=== PATIENT | female | born 1935 | race Asian ===

== ENCOUNTER 2016-05-07 07:29 | Emergency (ER) | payer MEDICARE, OTHER ==
[~2016-05-07] VITALS: Ht 154.9 cm; Wt 56.8 kg
[2016-05-07] MEDS ORDERED: NITROGLYCERIN 2% OINTMENT (NITRO-BID) 1 GM UNIT DOSE PACKET TOP ONE (07:40)
[2016-05-07] MEDS ORDERED: FUROSEMIDE 20 MG/2 ML (LASIX) VIAL IV ONE (07:40)
[2016-05-07] MEDS ORDERED: DILTIAZEM 25 MG/5 ML (CARDIZEM) VIAL IV ONE (07:40)
[2016-05-07] MEDS ORDERED: ALBUTEROL 0.083% NEB SOLUTION 2.5 MG/3 ML VIAL INH ONE (08:05)
[2016-05-07 08:11] LABS: BASOPHILS % (AUTO) 0 % (0-2); EOSINOPHILS # (AUTO) 0.2 10^3uL; EOSINOPHILS % (AUTO) 1 % (0-4); LYMPHOCYTES # (AUTO) 1.5 X10^3; MEAN CORPUSCULAR HEMOGLOBIN 30.5 PG (26.0-34.0); MEAN CORPUSCULAR HGB CONC 31.8 g/dL (31.0-37.0); MEAN CORPUSCULAR VOLUME 96 FL (80-100); MEAN PLATELET VOLUME 9.6 FL (6.0-9.5); MONOCYTES # (AUTO) 0.8 X10^3; MONOCYTES % (AUTO) 6 % (3-11); NEUTROPHILS # (AUTO) 10.2 X10^3; NEUTROPHILS % (AUTO) 80 % (51-67); PLATELET COUNT 208 10^3uL (150-450); WHITE BLOOD COUNT 12.72 10^3uL (4.0-11.0)
[2016-05-07 08:58] LABS: ALBUMIN 4.4 g/dL (3.4-5.0); ANION GAP 15.1 MEQ/L (3-15); CALCULATED IONIZED CALCIUM 3.7 mg/dL (3.8-4.6); TOTAL PROTEIN 8.7 g/dL (6.4-8.5)
[2016-05-07 09:01] LABS: BILIRUBIN,URINE Negative (Negative); COLOR,URINE Yellow; GLUCOSE, URINE (UA) Negative (Negative); LEUKOCYTE ESTERASE ,URINE Negative (Negative); PH,URINE 5.5 (5.0 - 8.0); UROBILINOGEN,URINE 0.2 mg/dL (0.2-1.0)
[2016-05-07 09:05] LABS: CLARITY,URINE Slightly Cloudy
[2016-05-07 09:13] LABS: INFLUENZA VIRUS TYPE A ANTIBOD Negative (NEGATIVE); INFLUENZA VIRUS TYPE B ANTIBOD Negative (NEGATIVE)
[2016-05-07 09:24] LABS: URINE CENTRIFUGED VOLUME 10 mL
[2016-05-07 09:25] LABS: YEAST,URINE Rare
[2016-05-07] MEDS ORDERED: ALBUTEROL/IPRATROPIUM 3MG-0.5MG/3ML (DUONEB) NEB VIAL INH ONE (09:25)
[2016-05-07] MEDS ORDERED: CARVEDILOL 12.5 MG (COREG) TABLET PO ONE (09:25)
[2016-05-07] MEDS ORDERED: HYDRALAZINE 50 MG PO ONE (09:25)
[2016-05-07 10:30] VITALS: BP 138/196
--- NOTE | 2016-05-12 08:38 | NUR ---
UA HAD COME BACK POSITIVE, DR JETER RX BACTRIM, CALLED IN ORDER TO [facility] AND CALLED GINA MESSAGE LEFT WITH INFO.
== END 2016-05-07 10:31 | disposition home or self-care (01) ==
LOC: EDUNIT# 07:29 → ED 07:30
DX: J45.901 Unspecified asthma with (acute) exacerbation (principal); I50.9 Heart failure, unspecified; J06.9 Acute upper respiratory infection, unspecified; R82.71 Bacteriuria; R31.29 Other microscopic hematuria
CPT/HCPCS: 36415; 71010; 80053; 81003; 81015; 82550; 82553; 82803; 83735; 83880; 84443; 84484; 85025; 85610; 86140; 87088; 87502; 93005; 94640; 96374; 96375; 99285; A9270; J1940; J7613; 87077; 87186; 93010

== ENCOUNTER → 2016-05-07 | Outpatient (CLI) | payer MEDICARE, OTHER | LOC: EMS 07:10 | PROVIDERS: ATTEND Family Medicine | DX: R06.02 Shortness of breath (principal); I10 Essential (primary) hypertension ==

== ENCOUNTER 2016-05-21 15:21 | Inpatient (IN) | payer MEDICARE, OTHER ==
[~2016-05-21] VITALS: Ht 157.5 cm; Wt 70.1 kg
[2016-05-21] MEDS ORDERED: NS IV 500 ML 500 ML IV SCH ×2 (15:40→16:30)
[2016-05-21 15:58] LABS: BASOPHILS % (AUTO) 0 % (0-2); EOSINOPHILS # (AUTO) 0.1 10^3uL; EOSINOPHILS % (AUTO) 1 % (0-4); LYMPHOCYTES # (AUTO) 1.2 X10^3; MEAN CORPUSCULAR HEMOGLOBIN 29.1 PG (26.0-34.0); MEAN CORPUSCULAR VOLUME 95 FL (80-100); MEAN PLATELET VOLUME 9.7 FL (6.0-9.5); MONOCYTES # (AUTO) 0.5 X10^3; MONOCYTES % (AUTO) 8 % (3-11); NEUTROPHILS # (AUTO) 4.2 X10^3; NEUTROPHILS % (AUTO) 70 % (51-67); PLATELET COUNT 191 10^3uL (150-450); WHITE BLOOD COUNT 5.96 10^3uL (4.0-11.0)
[2016-05-21 16:05] LABS: MEAN CORPUSCULAR HGB CONC 30.8 g/dL (31.0-37.0)
[2016-05-21 16:09] LABS: ALBUMIN 4.1 g/dL (3.4-5.0); ANION GAP 20.4 MEQ/L (3-15); CALCULATED IONIZED CALCIUM 3.6 mg/dL (3.8-4.6); TOTAL PROTEIN 7.6 g/dL (6.4-8.5)
[2016-05-21] MEDS ORDERED: ONDANSETRON 2 MG/ML (Z0FRAN) 2 ML VIAL IV ONE (16:10)
[2016-05-21] MEDS ORDERED: DEXTROSE 50% 25 GM/50 ML SYRINGE IV ONE (16:30)
[2016-05-21] MEDS ORDERED: INSULIN REGULAR 1 UNIT/0.01 ML DOSE IV ONE (16:30)
[2016-05-21] MEDS ORDERED: fentaNYL 100 MCG/2 ML VIAL IV ONE (16:35)
[2016-05-21 17:24] LABS: BILIRUBIN,URINE Negative (Negative); CLARITY,URINE Clear; COLOR,URINE Yellow; GLUCOSE, URINE (UA) Negative (Negative); LEUKOCYTE ESTERASE ,URINE Negative (Negative); PH,URINE 5.5 (5.0 - 8.0); UROBILINOGEN,URINE 0.2 mg/dL (0.2-1.0)
[2016-05-21 17:28] LABS: URINE CENTRIFUGED VOLUME <10mL Unspun
[2016-05-21 17:29] LABS: RBC,URINE None Seen /HPF
[2016-05-21] MEDS ORDERED: ALBUTEROL 0.083% NEB SOLUTION 2.5 MG/3 ML VIAL INH ONE ×2 (17:30→23:45)
--- NOTE | 2016-05-21 17:52 | NUR ---
Patient arrives to room 306 via ED cart accompanied by daughter and RN. Ambulates to weight chair then bed without difficulty. Reports nausea and right shoulder pain rated 4/10 on pain scale. Vital signs WNL. Accucheck 107. Granados catheter intact with minimal clear yellow urine in bag. Daughter answers health history questions due to language barrier. See admission for full assessment.
[2016-05-21 18:12] VITALS: BP 109/76
[2016-05-21] MEDS ORDERED: GLUCAGON EMERGENCY 1 MG/KIT IM PRN (18:35)
[2016-05-21] MEDS ORDERED: ONDANSETRON 4 MG (ZOFRAN) ORAL DISSOLVE TAB PO PRN (18:35)
[2016-05-21] MEDS ORDERED: MAG HYDROX/AL HYDROX/SIMETH 200-200-20/5 ML (MAG-AL PLUS) 30 ML UDC PO PRN (18:35)
[2016-05-21] MEDS ORDERED: ONDANSETRON 2 MG/ML (Z0FRAN) 2 ML VIAL IV PRN (18:35)
[2016-05-21] MEDS ORDERED: POLYETHYLENE GLYCOL 17 GM (MIRALAX) PACKET PO PRN (18:35)
[2016-05-21] MEDS ORDERED: DOCUSATE SODIUM 100 MG (COLACE) CAP PO PRN (18:35)
[2016-05-21] MEDS ORDERED: DEXTROSE 50% 25 GM/50 ML SYRINGE IV PRN (18:35)
[2016-05-21] MEDS ORDERED: DEXTROSE ORAL GEL (GLUTOSE 40%) 15 GM TUBE PO PRN (18:35)
[2016-05-21] MEDS ORDERED: HYDROmorphone 1 MG/ML (DILAUDID) SYRINGE IV PRN (18:35)
[2016-05-21] MEDS ORDERED: PROMETHAZINE HCL INJ 12.5 MG in SODIUM CHLORIDE 25 ML IV PRN (18:35)
[2016-05-21] MEDS ORDERED: MAGNESIUM HYDROXIDE 80MG/ML (MILK OF MAGNESIA) 30 ML UDC PO PRN (18:35)
[2016-05-21] MEDS ORDERED: CALCIUM CARBONATE CHEWABLE 300 MG (TUMS) TABLET PO PRN (18:35)
[2016-05-21] MEDS ORDERED: ACETAMINOPHEN 325 MG TAB (TYLENOL) PO PRN (18:35)
[2016-05-21] MEDS ORDERED: ALBUTEROL 0.5% NEB SOLUTION 2.5 MG/0.5 ML VIAL INH PRN (18:50)
[2016-05-21 19:19] LABS: ALBUMIN 3.9 g/dL (3.4-5.0); ANION GAP 19.1 MEQ/L (3-15); PHOSPHORUS 5.6 mg/dL (2.4-4.9)
--- NOTE | 2016-05-21 19:35 | NUR ---
Tylenol 650 mg PO given for pain in right shoulder. Pt. sitting upright in bed; resp are even and unlabored on room air; IV bolus infusing without difficulty. Pt. just finished eating supper tray; denies nausea. Pt. is conversational and pleasant. Call light and H2O within reach.
[2016-05-21 19:41] LABS: MAGNESIUM* 4.2 mg/dL (1.6-2.3)
--- NOTE | 2016-05-21 19:50 | NUR ---
Critical lab values sent via TigerText to hospitalist. Potassium- 6.3; Creatinine-4.42; Magnesium-4.2 Status update also provided: First bag of NS bolus infusing; pt. ate supper tray well; no nausea; alert and orientated. Right shoulder pain treated with Tylenol.
[2016-05-21 19:51] VITALS: BP 98/54
--- NOTE | 2016-05-21 19:55 | NUR ---
Current orders reviewed with hospitalist; labs reviewed. New order: text pending results of the 2300 lab draw if potassium over 6.0.
--- NOTE | 2016-05-21 19:55 | NUR ---
Bolus fully infused; saline locked. Pt. repositioned for comfort. Daughter at bedside; cot ordered for overnight stay. Daughter watching tv; pt. dozing off and on. Call light and H2O within reach.
--- NOTE | 2016-05-21 20:27 | NUR ---
Pt found on RA, SPO2 96%, HR 81, RR 18. Pt has clear BS, no PRN indicated at this time. Pt's only complaint is shoulder pain at this time.
[2016-05-21] MEDS ORDERED: APIXABAN 2.5 MG (ELIQUIS) TABLET PO SCH (21:00)
[2016-05-21] MEDS ORDERED: FAMOTIDINE 20 MG (PEPCID) TABLET PO SCH (21:00)
[2016-05-21] MEDS ORDERED: INSULIN LISPRO 1 UNIT/0.01 ML (HUMALOG) DOSE SC SCH (21:00)
--- NOTE | 2016-05-21 21:00 | NUR ---
Accucheck this evening is 166; sliding scale insulin not required.
[2016-05-21] MEDS ORDERED: SODIUM CHLORIDE FLUSH 10 ML ONE (21:20)
[2016-05-21] MEDS ORDERED: SODIUM CHLORIDE FLUSH 10 ML SYR IV PRN (21:25)
--- NOTE | 2016-05-21 23:16 | NUR ---
Dilaudid 1 mg IV given for right shoulder pain rated "5". Lab just here to draw. H2O and call light within reach.
--- NOTE | 2016-05-21 23:40 | NUR ---
Susan to Dr. Avilez/Hospitalist result of lab: Potassium 6.5. New orders include NS @ 75 cc/hr; Albuterol treatment now. Physician ok for this nurse to initiate IVF order into computer. RT notified of new order. Pt. currently resting quietly; telemetry reflects AFib in the 70's.
[2016-05-22] VITALS (17 sets, daily range): BP systolic 89–128; BP diastolic 45–70
--- NOTE | 2016-05-22 00:15 | NUR ---
Pt given 2.5 mg Albuterol via SVN for hyperkalemia per Hospitalist.
--- NOTE | 2016-05-22 01:30 | NUR ---
Pt. resting after this nurse assists with repositioning; heart rate in the 70's-AFib. Granados to gravity; IVF infusing at 75 cc's and hour without difficulty; daughter asleep at bedside on cot.
--- NOTE | 2016-05-22 04:35 | NUR ---
Pt. changed of incontinent stool; denies need for pain med at this time; IVF infusing without difficulty; perdue to gravity; call light and H2O within reach.
[2016-05-22 06:03] LABS: BASOPHILS % (AUTO) 0 % (0-2); EOSINOPHILS # (AUTO) 0.1 10^3uL; EOSINOPHILS % (AUTO) 1 % (0-4); LYMPHOCYTES # (AUTO) 1.3 X10^3; MEAN CORPUSCULAR HEMOGLOBIN 29.5 PG (26.0-34.0); MEAN CORPUSCULAR VOLUME 95 FL (80-100); MEAN PLATELET VOLUME 9.8 FL (6.0-9.5); MONOCYTES # (AUTO) 0.5 X10^3; MONOCYTES % (AUTO) 8 % (3-11); NEUTROPHILS # (AUTO) 4.3 X10^3; NEUTROPHILS % (AUTO) 70 % (51-67); PLATELET COUNT 189 10^3uL (150-450); WHITE BLOOD COUNT 6.15 10^3uL (4.0-11.0)
--- NOTE | 2016-05-22 06:05 | NUR ---
Accucheck is 121 this morning; sliding scale insulin not required. Pt. slept in long intervals; denies need for pain med at this time. Pt. had scant to zero output within the last 8 hrs; bladder scan completed- 103 cc's. Pt. states she does not feel like she has to void; tubing inspected. Call light and H2O within reach. Daughter left about an hour ago.
[2016-05-22 06:27] LABS: MEAN CORPUSCULAR HGB CONC 31.2 g/dL (31.0-37.0)
[2016-05-22 06:47] LABS: ALBUMIN 3.7 g/dL (3.4-5.0); PHOSPHORUS 5.6 mg/dL (2.4-4.9)
[2016-05-22] MEDS ORDERED: ALBUTEROL/IPRATROPIUM 3MG-0.5MG/3ML (DUONEB) NEB VIAL INH SCH ×2 (07:00→11:00)
[2016-05-22] MEDS ORDERED: D5W IV ONE (07:05)
[2016-05-22] MEDS ORDERED: SODIUM BICARB IV ONE (07:05)
[2016-05-22] MEDS ORDERED: CALCIUM GLUCONATE 1,000 MG in D5W (IVPB) 50 ML IV ONE (07:05)
--- NOTE | 2016-05-22 07:15 | NUR ---
Labs/output texted to .
[2016-05-22] MEDS ORDERED: DEXTROSE ORAL GEL (GLUTOSE 40%) 15 GM TUBE PO PRN (07:20)
[2016-05-22] MEDS: INSULIN LISPRO 1 UNIT/0.01 ML (HUMALOG) DOSE SC SCH ×4 (07:30→21:00)
--- NOTE | 2016-05-22 07:30 | NUR ---
Transferred to room 345 per bed - transferred self to ICU bed - weight 66.3 kg
--- NOTE | 2016-05-22 07:30 | NUR ---
Assumed care at 0700. Harshal called with request to transfer to ICU at 0720. Report given to Pat Salmon RN. Pt AAO, informed of transfer; pt remains calm. IVF infusing with no difficulty. Pt transferred to Rm 345 at this time.
[2016-05-22] MEDS ORDERED: ONDANSETRON 2 MG/ML (Z0FRAN) 2 ML VIAL IV PRN (07:46)
[2016-05-22] MEDS ORDERED: SODIUM CHLORIDE FLUSH 10 ML SYR IV PRN (07:47)
[2016-05-22] MEDS ORDERED: ONDANSETRON 4 MG (ZOFRAN) ORAL DISSOLVE TAB PO PRN (07:47)
[2016-05-22] MEDS ORDERED: ACETAMINOPHEN 325 MG TAB (TYLENOL) PO PRN (07:48)
[2016-05-22] MEDS ORDERED: ALBUTEROL 0.5% NEB SOLUTION 2.5 MG/0.5 ML VIAL INH PRN (07:48)
[2016-05-22] MEDS ORDERED: CALCIUM CARBONATE CHEWABLE 300 MG (TUMS) TABLET PO PRN (07:48)
[2016-05-22] MEDS ORDERED: PROMETHAZINE HCL INJ 12.5 MG in SODIUM CHLORIDE 25 ML IV PRN (07:49)
[2016-05-22] MEDS ORDERED: DEXTROSE 50% 25 GM/50 ML SYRINGE IV PRN (07:49)
[2016-05-22] MEDS ORDERED: GLUCAGON EMERGENCY 1 MG/KIT IM PRN (07:49)
[2016-05-22] MEDS ORDERED: SODIUM BICARBONATE 8.4% 50 MEQ/50 ML SYRINGE IV ONE (07:55)
[2016-05-22] MEDS ORDERED: HYDROmorphone 1 MG/ML (DILAUDID) SYRINGE IV PRN (07:57)
[2016-05-22] MEDS ORDERED: CARVEDILOL 12.5 MG (COREG) TABLET PO SCH (08:00)
--- NOTE | 2016-05-22 08:00 | NUR ---
RT TX in progress
--- NOTE | 2016-05-22 08:15 | NUR ---
Dr Caputo in room - EKG in progress
--- NOTE | 2016-05-22 08:16 | NUR ---
Granddaughter called in for condition report
[2016-05-22] MEDS: CARVEDILOL 12.5 MG (COREG) TABLET PO SCH ×2 (08:26→17:33)
--- NOTE | 2016-05-22 08:30 | NUR ---
NS to infuse @ 999 mL/hr per RAC - Na bicarbonate to infuse per [facility] @ 100 mL/hr
--- NOTE | 2016-05-22 08:30 | NUR ---
Ate poor for breakfast: 2 bites banana and few dry cheerios - sipping on coffee "I like HOT drinks" - c/o cold - room T increased and extra blankets applied
--- NOTE | 2016-05-22 08:40 | NUR ---
Na bicarbonate slow IV push as ordered per RAC
[2016-05-22] MEDS: SODIUM POLYSTERENE SULF SUSP 15 GM/60 ML (KAYEXALATE) BTL PO SCH ×2 (08:57→13:00)
[2016-05-22] MEDS: HYDRALAZINE 50 MG PO SCH ×3 (08:58→17:33)
[2016-05-22] MEDS ORDERED: APIXABAN 2.5 MG (ELIQUIS) TABLET PO SCH (09:00)
[2016-05-22] MEDS ORDERED: hydrALAZINE 25 MG (APRESOLINE) TABLET PO SCH (09:00)
[2016-05-22] MEDS ORDERED: POLYETHYLENE GLYCOL 17 GM (MIRALAX) PACKET PO PRN (09:00)
[2016-05-22] MEDS ORDERED: DOCUSATE SODIUM 100 MG (COLACE) CAP PO PRN (09:00)
[2016-05-22] MEDS ORDERED: ASPIRIN 81 MG CHEW (CHILDREN'S ASA) PO SCH ×2 (09:00)
--- NOTE | 2016-05-22 09:00 | NUR ---
Calcium gluconate 1000 mg @ 100 mL/hr concurrent c NS - takes po meds with ease
--- NOTE | 2016-05-22 10:07 | NUR ---
Daughter called for condition report
--- NOTE | 2016-05-22 10:27 | NUR ---
NUTRITION ASSESSMENT Level 1 Patient: Nery Donato Age/Sex: 80/F Date Screened: 05-22-16 Weight: 141.2#/64.2 kg Height: 62 inches Primary Diagnosis: n/v/d Diet Order: medium diabetic Relevant labs: sodium 130, potassium 6.9, BUN 66, creatinine 4.53, glucose 111, phosphorus 5.6 Food allergies: N Nutrition Assessment Criteria Age over 80: N Body Mass Index (BMI) under 19: N Admission Screening Indicates Risk? 3 points Moderate/High Risk Diagnosis: 3 points TPN or PPN: N NPO or clear liquid diet: N Serum Glucose <70 or >180: N Hgb A1c >6.7: N/A Total: 6 points Risk Screen: __ Patient at low nutritional risk based on available data; reevaluate in 5-7 days __ Patient at moderate nutritional risk based on available data; reevaluate in 3-5 days _X_ Patient at high nutritional risk; complete Nutrition Assessment within 48 hours of admission.
--- NOTE | 2016-05-22 11:00 | NUR ---
Amb to toilet - formed and large amount liquid brown stool "my stomach"
--- NOTE | 2016-05-22 11:04 | NUR ---
MED REC COMPLETED-current med list obtained from Ext Med History application and retail pharmacy.
--- NOTE | 2016-05-22 11:15 | NUR ---
Amb to toilet - incont c large amount of liquid brown stool
--- NOTE | 2016-05-22 11:35 | NUR ---
Up to toilet - incontinent - "I'll sit here awhile"
[2016-05-22] MEDS: ALBUTEROL/IPRATROPIUM 3MG-0.5MG/3ML (DUONEB) NEB VIAL INH SCH ×3 (11:45→19:43)
--- NOTE | 2016-05-22 11:50 | NUR ---
Up to toilet - medium amount liquid brown stool - "I'm going to sit here awhile"
--- NOTE | 2016-05-22 12:00 | NUR ---
Sitting on bededge - LS posteriorly crackles LLL and RLL L>R
--- NOTE | 2016-05-22 12:20 | NUR ---
Lab in progress
[2016-05-22 12:38] LABS: ALBUMIN 3.9 g/dL (3.4-5.0); PHOSPHORUS 5.9 mg/dL (2.4-4.9)
--- NOTE | 2016-05-22 13:32 | NUR ---
Stool specimen sent to lab
--- NOTE | 2016-05-22 14:32 | NUR ---
MULTIDISCIPLINARY MTG/DR. COURTNEY: Pt. admitted with gastroenteritis symptoms for one week. Pt. continues to have diarrhea and a stool sample was sent down for testing. Pt. also has a MALLORY and hyperkalemia. Pt. was initially given IVF and insulin plus glucose but her potassium continued to increase. Pt. did not have any peaked T waves. Additionally Pt. has received calcium and sodium bicarbonate. Pt. has also received two doses of Kayexalate. Pt. potassium has decreased to 5.7 and her creatinine has gradually decreased to 4.4. Pt. urine output is improving. Pt. to remain in the ICU for now. No discharge needs identified at this time.
--- NOTE | 2016-05-22 15:15 | NUR ---
C-diff positive - Contact isolation initiated - Dr Caputo notified
--- NOTE | 2016-05-22 16:33 | NUR ---
NUTRITION ASSESSMENT Level II Patient: Nery Donato Age/Sex: 80/F Date Assessed: 05-22-16 ASSESSMENT Pertinent History: Patient admitted with n/v/d and screened at high nutritional risk secondary to length of time shes had symptoms (1 week) with altered lab values and stated weight loss. PMHx includes HTN, a fib, asthma, diabetes, constipation, chronic pain, GERD, and insomnia. Her current weight is up significantly since admission (125# to 141#); at her most recent admission in 2015, pt. weighed 130#. At that time, she was admitted for heart failure and weight was fluctuating; it appears as though 125# had been her UBW. Meds/Nutrition: Pepcid, Humalog, sodium bicarbonate, NS Weight: 141.2#/64.2 kg Height: 62 inches Body Mass Index (BMI): 25.9 [place] Body Weight : 110#/50 kg % IBW: 128% GASTROINTESTINAL Appetite: poor, bites Diet Order: medium diabetic Unintentional loss of >10 lbs. in 3 months: N Difficult to chew/swallow: N Diabetes: Yes Relevant Labs: sodium 130, potassium 6.9, BUN 66, creatinine 4.53, glucose 111, phosphorus 5.6, C-Diff (+) Calculations for Nutritional Assessment Estimated calorie needs: 25-28 kcals/kg = 1,600-1,790 kcals Estimated protein needs: 1.0-1.2 g/kg = 64-76 g./day DIAGNOSIS 1. Nutrition Diagnosis: Inadequate intake related to altered GI function as evidenced by n/v/d x1 week with eating only bites since admission. NUTRITIONAL INTERVENTION Goal: Patient will receive adequate nutrition to meet her needs. Plan: Discussed in multidisciplinary huddle today; pt. was taking her potassium and Lasix at home even while she was having vomiting/diarrhea, so that's a possible etiology for her altered lab values. Noted C-Diff came back positive this afternoon. Expect appetite/intake to improve with resolution of symptoms. In the meantime, recommend we offer patient whatever sounds most appealing. Small sips of liquids throughout the day may be better tolerated than solids for now; will follow closely. MONITORING & EVALUATION _X_ Monitor patients menu selections _X_ Monitor patients food intake per nursing notes __ Monitor NPO/clear liquid days _X_ Monitor lab values __ Monitor I&O __ Other
--- NOTE | 2016-05-22 17:00 | NUR ---
Accu check 197
[2016-05-22] MEDS: VANCOMYCIN 250 MG/5 ML PO SCH (17:33)
--- NOTE | 2016-05-22 17:34 | NUR ---
Humalog 1 unit SQ DEJA per SSI - supper tray served - urine clear light yellow
--- NOTE | 2016-05-22 18:00 | NUR ---
Lab in progress
[2016-05-22 18:39] LABS: ALBUMIN 3.8 g/dL (3.4-5.0); PHOSPHORUS 5.3 mg/dL (2.4-4.9)
--- NOTE | 2016-05-22 19:51 | NUR ---
Pt found lying in bed on RA, SPO2 92%, HR 94, RR 16 and non labored with clear BS before and after Duoneb via SVN.
[2016-05-22] MEDS ORDERED: FAMOTIDINE 20 MG (PEPCID) TABLET PO SCH (21:00)
[2016-05-23] VITALS (7 sets, daily range): BP systolic 86–154; BP diastolic 48–96
[2016-05-23] MEDS: VANCOMYCIN 250 MG/5 ML PO SCH ×5 (00:18→23:47)
[2016-05-23] MEDS: INSULIN LISPRO 1 UNIT/0.01 ML (HUMALOG) DOSE SC SCH ×4 (05:27→21:00)
[2016-05-23 06:07] LABS: ALBUMIN 3.5 g/dL (3.4-5.0); MAGNESIUM* 3.6 mg/dL (1.6-2.3)
[2016-05-23 06:24] LABS: BASOPHILS % (AUTO) 0 % (0-2); EOSINOPHILS # (AUTO) 0.1 10^3uL; EOSINOPHILS % (AUTO) 2 % (0-4); LYMPHOCYTES # (AUTO) 1.3 X10^3; MEAN CORPUSCULAR VOLUME 94 FL (80-100); MEAN PLATELET VOLUME 9.8 FL (6.0-9.5); MONOCYTES # (AUTO) 0.7 X10^3; MONOCYTES % (AUTO) 11 % (3-11); NEUTROPHILS # (AUTO) 4.2 X10^3; NEUTROPHILS % (AUTO) 66 % (51-67); PLATELET COUNT 185 10^3uL (150-450); WHITE BLOOD COUNT 6.34 10^3uL (4.0-11.0)
--- NOTE | 2016-05-23 07:05 | NUR ---
Report received from Samantha Foster RN and care assumed. Pt resting in bed with eyes closed, resp even and unlabored.
--- NOTE | 2016-05-23 07:45 | NUR ---
Assessments completed. Pt is alert and oriented x 4, VS taken, pt on RA. Granados catheter patent to DDD. IV site without redness or edema, NS infusing per pump at 125cc/hr. SCDs off. Lung sounds clr in upper lobes, slightly diminished in lower lobes. BS audible. Radial pulses palpable and strong, document management specialist equal. Dorsal pulses palpable bilaterally. Pt understands limited Tristanian but able to communicate with staff. Telemetry showing A-fib. Will continue to monitor.
[2016-05-23] MEDS: CARVEDILOL 12.5 MG (COREG) TABLET PO SCH ×2 (07:53→17:06)
[2016-05-23] MEDS ORDERED: DEXTROSE ORAL GEL (GLUTOSE 40%) 15 GM TUBE PO PRN (08:20)
[2016-05-23] MEDS: ASPIRIN 81 MG CHEW (CHILDREN'S ASA) PO SCH (08:24)
[2016-05-23] MEDS: HYDRALAZINE 50 MG PO SCH ×3 (08:24→17:04)
--- NOTE | 2016-05-23 08:30 | NUR ---
IV fluids completed and dcd at this time. Pt ate very poorly for breakfast, states she does not eat eggs in the morning. Denies needs at present. New orders recvd, telemetry dcd at this time.
--- NOTE | 2016-05-23 08:50 | NUR ---
Granados catheter removed, pt up in chair at bedside. Requested jello red and coffee with sugar.
[2016-05-23] MEDS: ALBUTEROL/IPRATROPIUM 3MG-0.5MG/3ML (DUONEB) NEB VIAL INH SCH ×5 (09:14→20:44)
--- NOTE | 2016-05-23 09:30 | NUR ---
Dr. Caputo present to examine pt. New orders to transfer to Med Surg
--- NOTE | 2016-05-23 09:57 | NUR ---
patient transferred from ICU to room 319 via w/c accompanied by this nurse. Pt alert/oriented, talkative, smiling. Voided 75ml yellow urine in toilet hat. Ambulates with cane and 1 SBA. Orientated to room, call light, meals. Call light within reach.
--- NOTE | 2016-05-23 10:00 | NUR ---
Report given to Maria R ANDRADE and care relinquished. Pt transferred to room 319 per W/C by Maria R ANDRADE. Chart and belongings taken over by Gilda Espinosa
[2016-05-23] MEDS ORDERED: ALBUTEROL 0.5% NEB SOLUTION 2.5 MG/0.5 ML VIAL INH PRN (11:50)
[2016-05-23] MEDS ORDERED: ACETAMINOPHEN 325 MG TAB (TYLENOL) PO PRN (13:50)
[2016-05-23] MEDS ORDERED: ONDANSETRON 4 MG (ZOFRAN) ORAL DISSOLVE TAB PO PRN (13:50)
[2016-05-23] MEDS ORDERED: PROMETHAZINE HCL INJ 12.5 MG in SODIUM CHLORIDE 25 ML IV PRN (13:50)
[2016-05-23] MEDS ORDERED: CALCIUM CARBONATE CHEWABLE 300 MG (TUMS) TABLET PO PRN (15:50)
--- NOTE | 2016-05-23 17:25 | NUR ---
Crackles in bases this PM. No cough, room air, 96%.
--- NOTE | 2016-05-23 20:05 | NUR ---
Pt is sitting up in bed visiting on the phone, alert and oriented x 4, Resp are even and nonlabored, heard crackles to bilateral lower lobes, HRRR, BS are active x 4, quadrants. SL is patent, no redness, swelling, or s/s of infection noted at this time. Denies pain or discomfort at this time. Call light is in reach, will continue to monitor.
--- NOTE | 2016-05-23 20:46 | NUR ---
Pt found on RA, SPO2 94%, HR 61, RR 16 and non labored at this time. BS have some fine diminished crackles before Tx, clear post Tx with cough.
[2016-05-23] MEDS: FAMOTIDINE 20 MG (PEPCID) TABLET PO SCH (21:26)
[2016-05-24 00:25] VITALS: BP 138/76
[2016-05-24] MEDS ORDERED: diphenhydrAMINE 25 MG (BENADRYL) TABLET PO PRN (01:30)
--- NOTE | 2016-05-24 04:12 | NUR ---
Pt is resting in bed asleep, does not appear in pain or discomfort at this time, call light is in reach, will continue to monitor.
[2016-05-24] MEDS: VANCOMYCIN 250 MG/5 ML PO SCH ×3 (05:14→18:25)
[2016-05-24 06:26] LABS: ALBUMIN 3.8 g/dL (3.4-5.0); ANION GAP 13.2 MEQ/L (3-15); PHOSPHORUS 4.2 mg/dL (2.4-4.9)
[2016-05-24] MEDS: INSULIN LISPRO 1 UNIT/0.01 ML (HUMALOG) DOSE SC SCH ×4 (07:30→21:00)
[2016-05-24] MEDS ORDERED: DEXTROSE 50% 25 GM/50 ML SYRINGE IV PRN (07:50)
[2016-05-24] MEDS ORDERED: GLUCAGON EMERGENCY 1 MG/KIT IM PRN (07:50)
[2016-05-24] MEDS ORDERED: SODIUM CHLORIDE FLUSH 10 ML SYR IV PRN (07:50)
[2016-05-24] MEDS: CARVEDILOL 12.5 MG (COREG) TABLET PO SCH ×2 (07:51→18:06)
[2016-05-24 08:26] VITALS: BP 147/92
[2016-05-24] MEDS: ALBUTEROL/IPRATROPIUM 3MG-0.5MG/3ML (DUONEB) NEB VIAL INH SCH ×4 (08:30→19:25)
[2016-05-24] MEDS: ASPIRIN 81 MG CHEW (CHILDREN'S ASA) PO SCH (09:06)
[2016-05-24] MEDS: HYDRALAZINE 50 MG PO SCH ×3 (09:06→18:06)
[2016-05-24 15:33] VITALS: BP 143/87
[2016-05-24] MEDS: POLYETHYLENE GLYCOL 17 GM (MIRALAX) PACKET PO PRN (18:14)
--- NOTE | 2016-05-24 19:27 | NUR ---
Pt found lying in bed on RA, SPO2 97%, HR 79, RR 16 and non labored. BS have a fine wheeze in the upper left lung before Duoneb via SVN/MASK. BS unchanged post Tx.
[2016-05-24] MEDS: FAMOTIDINE 20 MG (PEPCID) TABLET PO SCH (21:07)
[2016-05-25] MEDS: VANCOMYCIN 250 MG/5 ML PO SCH ×4 (00:18→17:49)
[2016-05-25 00:38] VITALS: BP 157/95
--- NOTE | 2016-05-25 04:07 | NUR ---
Pt is sitting up in recliner watching tv and eating a salad. Denies pain or discomfort at this time. Call light is in reach, will continue to monitor.
[2016-05-25] MEDS ORDERED: fentaNYL 100 MCG/2 ML VIAL IV PRN (05:05)
[2016-05-25] MEDS ORDERED: CEPASTAT LOZENGE MM ONE (05:05)
--- NOTE | 2016-05-25 05:15 | NUR ---
Pt complains of severe pain to throat, rates 10/10, and is crying. Notified physician via text. Received order to give morphine 2mg IV q 4hr PRN and Cepacol lozenge x1 for throat pain.
[2016-05-25] MEDS ORDERED: morphine INJ 2 MG/ML 1 ML SYRINGE IV PRN (05:20)
--- NOTE | 2016-05-25 05:31 | NUR ---
Gave Morphine 2mg SIVP and Cepacol lozenge 1 PO for throat pain. Will continue to monitor.
[2016-05-25] MEDS: INSULIN LISPRO 1 UNIT/0.01 ML (HUMALOG) DOSE SC SCH ×4 (07:30→21:02)
[2016-05-25] MEDS: CARVEDILOL 12.5 MG (COREG) TABLET PO SCH ×2 (07:40→17:44)
[2016-05-25 08:00] VITALS: BP 178/108
--- NOTE | 2016-05-25 08:30 | NUR ---
PT REPORTS NOT FEELING WELL TODAY, THOUGH THERE IS A LANGUAGE BARRIER THIS NURSE IS ABLE TO UNDERSTAND PT'S C/O ARE RELATED TO NO BOWEL MOVEMENT FOR SEVERAL DAYS, ABD IS SOFT WITH + BS, PT REPORTS PASSING FLATUS. MIRALAX GIVEN LAST DILLON, THIS MORNING MIRALAX REPEATED WELL COLACE ADMIN. BILAT LE HAVE 2+ EDEMA, LS CTA, HEART RRR
[2016-05-25] MEDS: HYDRALAZINE 50 MG PO SCH ×3 (08:36→17:44)
[2016-05-25] MEDS: ASPIRIN 81 MG CHEW (CHILDREN'S ASA) PO SCH (08:36)
[2016-05-25] MEDS: POLYETHYLENE GLYCOL 17 GM (MIRALAX) PACKET PO PRN (08:36)
[2016-05-25] MEDS: DOCUSATE SODIUM 100 MG (COLACE) CAP PO PRN ×2 (08:36→17:44)
[2016-05-25] MEDS: ALBUTEROL/IPRATROPIUM 3MG-0.5MG/3ML (DUONEB) NEB VIAL INH SCH ×4 (08:46→20:26)
[2016-05-25 09:21] VITALS: BP 145/88
--- NOTE | 2016-05-25 11:23 | NUR ---
PT RESTING WELL WITH EYES CLOSED, RESP REG/NONLABORED
--- NOTE | 2016-05-25 12:00 | NUR ---
PRUNE JUICE PROVIDED, PT IS FEELING BETTER, STS SHE RESTED WELL THIS AM WHICH HAS MADE HER FEEL BETTER.
[2016-05-25 16:04] VITALS: BP 140/70
--- NOTE | 2016-05-25 18:00 | NUR ---
PRUNE JUICE & COLACE PROVIDED, THIS NURSE ATTEMPTED TO DISCUSS IMPORTANCE OF AMB IN ROOM TO ASSIST WITH PERISTALSIS, PT HAS A GOOD APPETITE AND DENIES PAIN. WILL PROCEED WITH CAUTION DUE TO AMT OF LAXATIVES/LAXATIVE AIDES PAST 2 DAYS.
--- NOTE | 2016-05-25 20:27 | NUR ---
Pt is sitting on edge of bed, 1 visitor present, pt is awake and alert, tolerated tx well. SPO2 97% on RA.
[2016-05-25] MEDS: FAMOTIDINE 20 MG (PEPCID) TABLET PO SCH (21:02)
[2016-05-26] MEDS: VANCOMYCIN 250 MG/5 ML PO SCH ×2 (00:10→05:12)
[2016-05-26 00:15] VITALS: BP 178/87
--- NOTE | 2016-05-26 04:25 | NUR ---
Pt is resting in bed asleep, does not appear in pain or discomfort at this time, call light is in reach, will continue to monitor.
[2016-05-26 06:03] LABS: BASOPHILS % (AUTO) 0 % (0-2); EOSINOPHILS # (AUTO) 0.1 10^3uL; EOSINOPHILS % (AUTO) 2 % (0-4); LYMPHOCYTES # (AUTO) 1.2 X10^3; MEAN CORPUSCULAR HEMOGLOBIN 28.9 PG (26.0-34.0); MEAN CORPUSCULAR VOLUME 94 FL (80-100); MEAN PLATELET VOLUME 9.6 FL (6.0-9.5); MONOCYTES # (AUTO) 0.5 X10^3; MONOCYTES % (AUTO) 7 % (3-11); NEUTROPHILS # (AUTO) 4.8 X10^3; NEUTROPHILS % (AUTO) 73 % (51-67); PLATELET COUNT 159 10^3uL (150-450); WHITE BLOOD COUNT 6.55 10^3uL (4.0-11.0)
[2016-05-26 06:05] LABS: MEAN CORPUSCULAR HGB CONC 30.7 g/dL (31.0-37.0)
[2016-05-26 06:22] LABS: ALBUMIN 3.7 g/dL (3.4-5.0); ANION GAP 14.1 MEQ/L (3-15); PHOSPHORUS 3.5 mg/dL (2.4-4.9)
[2016-05-26] MEDS: INSULIN LISPRO 1 UNIT/0.01 ML (HUMALOG) DOSE SC SCH (07:30)
[2016-05-26] MEDS ORDERED: FUROSEMIDE 20 MG (LASIX) TAB PO ONE (07:30)
[2016-05-26] MEDS: CARVEDILOL 12.5 MG (COREG) TABLET PO SCH (08:28)
[2016-05-26] MEDS: ASPIRIN 81 MG CHEW (CHILDREN'S ASA) PO SCH (08:28)
[2016-05-26] MEDS: HYDRALAZINE 50 MG PO SCH (08:28)
[2016-05-26] MEDS: ALBUTEROL/IPRATROPIUM 3MG-0.5MG/3ML (DUONEB) NEB VIAL INH SCH (08:33)
--- NOTE | 2016-05-26 08:45 | NUR ---
Patient complained of swelling in bilateral legs. Gave a one time order for lasix 60mg. PO. Informed patient she is not to have anymore lasix until seen by Dr. Chiang.
[2016-05-26 08:55] VITALS: BP 160/90
--- NOTE | 2016-05-26 10:50 | NUR ---
Gave the patient and her daughter discharge instructions. Daughter informed me she already filled the patient's script on Thursday. Educated them that she should not take any diuretic until seen my Dr. Flo Chiang. Daughter and patient demonstrated verbal understanding.
--- NOTE | 2016-05-26 10:55 | NUR ---
Patient dismissed per wheelchair accompanied by the cemetery warden and her daughter.
== END 2016-05-26 10:55 | disposition home or self-care (01) | DRG 683 ==
LOC: ED 15:22 → MED/SURG 17:36 → ICU 05-22 07:30 → MED/SURG 05-23 09:57
PROVIDERS: ADMIT Internal Medicine; ATTEND Internal Medicine
DX: N17.9 Acute kidney failure, unspecified (principal); A04.7 Enterocolitis due to Clostridium difficile; E86.0 Dehydration; E87.5 Hyperkalemia; E11.9 Type 2 diabetes mellitus without complications; I10 Essential (primary) hypertension; J44.9 Chronic obstructive pulmonary disease, unspecified; I48.91 Unspecified atrial fibrillation; J45.909 Unspecified asthma, uncomplicated; R21 Rash and other nonspecific skin eruption
CPT/HCPCS: 36415; 51702; 71010; 74176; 80053; 80069; 81003; 81015; 82550; 82553; 83735; 84132; 84484; 85025; 85610; 85730; 87507; 93005; 93010; 94640; 96361; 96374; 96375; 99285

== ENCOUNTER → 2016-05-27 | Outpatient (CLI) | payer MEDICARE, OTHER ==
[2016-05-27 11:53] LABS: ALBUMIN 3.5 g/dL (3.4-5.0); ANION GAP 15.1 MEQ/L (3-15); PHOSPHORUS 4.4 mg/dL (2.4-4.9)
== END ==
LOC: LAB 10:59
PROVIDERS: ATTEND Internal Medicine
DX: N17.9 Acute kidney failure, unspecified (principal)
CPT/HCPCS: 36415; 80069